=== PATIENT | male | born 1985 | race Asian ===

== ENCOUNTER 2021-03-20 11:53 | Emergency (ER) | payer SELFPAY ==
[~2021-03-20] VITALS: Ht 165.1 cm; Wt 72.7 kg
[2021-03-20 12:36] VITALS: BP 115/84
== END 2021-03-20 12:48 | disposition home or self-care (01) ==
LOC: EMS 11:55
DX: F41.9 Anxiety disorder, unspecified (principal); F17.210 Nicotine dependence, cigarettes, uncomplicated; F19.90 Other psychoactive substance use, unspecified, uncomplicated
CPT/HCPCS: 99283; Z7502

== ENCOUNTER 2022-10-10 15:07 | Emergency (ER) | payer MEDICAID ==
[~2022-10-10] VITALS: Ht 172.7 cm; Wt 65.9 kg
[2022-10-10] MEDS ORDERED: LIDOCAINE 5% TRANSDERMAL PATCH TD ONE (15:30)
[2022-10-10] MEDS ORDERED: PERTUSS(ACELL),DIPH,TET VAC/PF 0.5 ML SYRINGE IM. ONE (15:30)
[2022-10-10] MEDS ORDERED: BACITRACIN 0.9 GM PACKET OINTMENT TP ONE (15:30)
[2022-10-10] MEDS ORDERED: ACETAMINOPHEN 500 MG TABLET PO ONE (15:30)
[2022-10-10 17:20] VITALS: BP 117/78
== END 2022-10-10 17:37 | disposition home or self-care (01) ==
LOC: EMS 15:10
DX: S09.8XXA Other specified injuries of head, initial encounter (principal); S00.212A Abrasion of left eyelid and periocular area, initial encounter; F17.210 Nicotine dependence, cigarettes, uncomplicated; F15.90 Other stimulant use, unspecified, uncomplicated; W22.8XXA Striking against or struck by other objects, initial encounter; Y93.89 Activity, other specified; Y92.89 Other specified places as the place of occurrence of the external cause; Y99.8 Other external cause status
CPT/HCPCS: 99285; 70450; 70486; 71250; 72125; 90715; 90471; G0238